=== PATIENT | female | born 2000 | race African-American/Black ===

== ENCOUNTER 2021-01-04 00:32 | Emergency (ER) | payer BC ==
[~2021-01-04] VITALS: Ht 165.1 cm; Wt 89.0 kg
[2021-01-04 01:05] VITALS: BP 100/61
[2021-01-04] MEDS ORDERED: AMOX-424 PO (01:35)
[2021-01-04] MEDS ORDERED: IBUP-2029 PO (01:35)
== END 2021-01-04 02:02 | disposition home or self-care (01) ==
LOC: ER 00:32
DX: S61.452A Open bite of left hand, initial encounter (principal); W54.0XXA Bitten by dog, initial encounter; Y93.89 Activity, other specified; Y92.89 Other specified places as the place of occurrence of the external cause; Y99.8 Other external cause status
CPT/HCPCS: 81025; 99283

== ENCOUNTER 2021-01-05 08:10 | Emergency (ER) | payer BC ==
[~2021-01-05] VITALS: Ht 165.1 cm; Wt 70.0 kg
[~2021-01-05 08:10] MED LIST: AMOX-424 PO; IBUP-2029 PO
[2021-01-05 09:06] VITALS: BP 109/77
== END 2021-01-05 09:07 | disposition home or self-care (01) ==
LOC: ER 08:10
DX: S61.452A Open bite of left hand, initial encounter (principal); W54.0XXA Bitten by dog, initial encounter; R03.0 Elevated blood-pressure reading, without diagnosis of hypertension; Y93.89 Activity, other specified; Y92.018 Other place in single-family (private) house as the place of occurrence of the external cause
CPT/HCPCS: 99281

== ENCOUNTER 2021-01-07 08:31 | Emergency (ER) | payer BC ==
[~2021-01-07] VITALS: Ht 165.1 cm; Wt 90.0 kg
[2021-01-07 09:35] VITALS: BP 102/52
[2021-01-08] MEDS ORDERED: TOPUD PO (09:07)
== END 2021-01-07 09:35 | disposition home or self-care (01) ==
LOC: ER 09:01
DX: Z48.00 Encounter for change or removal of nonsurgical wound dressing (principal)
CPT/HCPCS: 99281

== ENCOUNTER 2021-01-08 05:35 | Emergency (ER) | payer BC, OTHER ==
[~2021-01-08] VITALS: Ht 165.1 cm; Wt 84.0 kg
[2021-01-08 07:43] LABS: BASOPHILS % 0.4 % (0.0-2.0); EOSINOPHILS % 0.3 % (0.0-5.0); HEMATOCRIT. 40.3 % (36.0-48.0); HEMOGLOBIN. 13.4 g/dL (12.0-16.0); LYMPHOCYTES % 19.9 % (20.0-50.0); MEAN CORPUSCULAR HEMOGLOBIN 26.3 pg (28.0-32.0); MEAN CORPUSCULAR VOLUME 79.5 fL (81.0-99.0); MEAN PLATELET VOLUME 8.8 fl (7.4-10.4); MONOCYTES % 9.4 % (2.0-8.0); PLATELET 236 x1000/uL (130-400); RED BLOOD CELL COUNT 5.07 mill/uL (4.2-5.4); RED CELL DISTRIBUTION WIDTH 13.6 % (11.6-14.6)
[2021-01-08 07:45] LABS: CLARITY URINE CLOUDY (CLEAR); COLOR URINE YELLOW (YELLOW); KETONES URINE TRACE (NEGATIVE); LEUKOCYTE ESTERASE URINE 2+ (NEGATIVE); NITRITE URINE NEGATIVE (NEGATIVE); OCCULT BLOOD URINE NEGATIVE (NEGATIVE); PROTEIN URINE NEGATIVE (NEGATIVE); SPECIFIC GRAVITY URINE 1.025 (1.005-1.030); UROBILINOGEN URINE 0.2 E.U./dL (0.2-1.0)
[2021-01-08 07:49] LABS: CHLORIDE 108 mEq/L (98-107)
[2021-01-08] MEDS ORDERED: TOPUD PO (09:07)
[2021-01-08 09:54] VITALS: BP 115/62
== END 2021-01-08 09:57 | disposition home or self-care (01) ==
LOC: ER 05:35
DX: N83.202 Unspecified ovarian cyst, left side (principal)
CPT/HCPCS: 36415; 76830; 76856; 80053; 81003; 81025; 85025; 99284; Z7610

== ENCOUNTER 2023-05-22 05:03 | Emergency (ER) | payer SELFPAY ==
[~2023-05-22] VITALS: Ht 167.6 cm; Wt 82.5 kg
[~2023-05-22 05:03] MED LIST changes: +TOPUD PO
[2023-05-22 05:35] VITALS: BP 115/73; O2SAT 99
[2023-05-22] MEDS ORDERED: AMOX1TAB16 MT (08:22)
[2023-05-22 08:48] VITALS: PULSE 87; RESP 18; TEMP 98.1
== END 2023-05-22 09:38 | disposition home or self-care (01) ==
LOC: ER 05:03
DX: H66.92 Otitis media, unspecified, left ear (principal); R09.81 Nasal congestion
CPT/HCPCS: 81025; 99282; 99283

== ENCOUNTER 2023-06-08 06:07 | Emergency (ER) | payer SELFPAY ==
[~2023-06-08] VITALS: Ht 167.6 cm; Wt 72.0 kg
[~2023-06-08 06:07] MED LIST changes: +AMOX1TAB16 MT
[2023-06-08 06:13] VITALS: O2SAT 97
[2023-06-08] MEDS ORDERED: LACTULOSE 20G/30ML UDC PO ONE (06:45)
[2023-06-08] MEDS ORDERED: POLY17PO3 MT (08:54)
[2023-06-08 09:08] LABS: CLARITY URINE CLOUDY (CLEAR); COLOR URINE YELLOW (YELLOW); GLUCOSE URINE NEGATIVE (NEGATIVE); KETONES URINE 1+ (NEGATIVE); PROTEIN URINE NEGATIVE (NEGATIVE); SPECIFIC GRAVITY URINE 1.015 (1.005-1.030)
[2023-06-08 09:09] LABS: LEUKOCYTE ESTERASE URINE NEGATIVE (NEGATIVE); NITRITE URINE NEGATIVE (NEGATIVE); OCCULT BLOOD URINE NEGATIVE (NEGATIVE); UROBILINOGEN URINE 0.2 E.U./dL (0.2-1.0)
[2023-06-08 09:10] LABS: SQUAMOUS EPITHELIAL CELL URINE 3+ /lpf (RARE/1+)
[2023-06-08 09:11] LABS: BACTERIA URINE 2+; YEAST URINE NONE SEEN
[2023-06-08] MEDS ORDERED: NITR100C PO (09:27)
[2023-06-08 09:52] VITALS: BP 124/85; PULSE 78; RESP 16; TEMP 98.6
== END 2023-06-08 10:30 | disposition home or self-care (01) ==
LOC: ER 06:07
DX: K59.00 Constipation, unspecified (principal); N39.0 Urinary tract infection, site not specified
CPT/HCPCS: 81003; 99283

== ENCOUNTER 2023-08-19 04:11 | Emergency (ER) | payer OTHER ==
[~2023-08-19] VITALS: Ht 167.6 cm; Wt 79.0 kg
[~2023-08-19 04:11] MED LIST changes: +NITR100C PO; +POLY17PO3 MT
[2023-08-19 04:25] VITALS: BP 117/81; PULSE 120; RESP 12; TEMP 98.6; O2SAT 100
== END 2023-08-19 06:31 | disposition home or self-care (01) ==
LOC: ER 04:39
DX: S61.302A Unspecified open wound of right middle finger with damage to nail, initial encounter (principal); S61.303A Unspecified open wound of left middle finger with damage to nail, initial encounter; Z79.899 Other long term (current) drug therapy; Y04.0XXA Assault by unarmed brawl or fight, initial encounter; Y93.89 Activity, other specified; Y92.89 Other specified places as the place of occurrence of the external cause; Y99.8 Other external cause status
CPT/HCPCS: 99281